=== PATIENT | female | born 1995 | race Hispanic/Latino ===

== ENCOUNTER 2023-07-02 16:19 | Emergency (ER) | payer OTHER, SELFPAY | END 2023-07-02 17:10 | disposition home or self-care (01) | PROVIDERS: Emergency Provider Registered Nurse | DX: N39.0 Urinary tract infection, site not specified (principal) | CPT/HCPCS: 81003; 81025; 87086; 99213; G0463 ==

== ENCOUNTER 2025-02-16 14:38 | Emergency (ER) | payer SELFPAY ==
--- OUTSIDE RECORDS SUMMARY | 2025-02-16 14:40 | XMS_ITS | Data Portability ---
Author Organization NYDIA REJIRogelio Fernandez Address [address] [facility] [place] [address] Care Team Providers Care Stave And Bolt Equalizer Name Role Phone MACIEALEX Primary Care Provider [phone] Assessment No assessment recorded. Plan of Treatment Reminders Order Date Submit Date Provider Last Modified By Organization Details Last Modified Time Details Appointments ANY 15 2024 07:45A CATRACHITO LAO Not available Not available Not available Lab amylase + lipase, serum 2022 023 BAYRON TOUSSAINT, [facility], [facility] [address], [place], [address], 07/25/2023 08:23:58 CMP, serum or plasma 2022 023 BAYRON TOUSSAINT, [facility], [facility] [address], [place], [address], 07/24/2023 20:09:55 TSH + free T4, serum 2021 022 [facility], [facility] [address], [place], [address], 07/15/2022 08:20:49 CMP, serum or plasma 2021 022 Alanis [facility], [address], [place], [address], 07/15/2022 08:20:50 CBC w/ auto diff 2021 022 BAYRON TOUSSAINT [address] [place], [place] [address]brissa Roahn, [address], [place], [address], 07/15/2022 08:20:49 HIV 1 + 2, meaningfu l use set 2021 022 [facility], [address] [facility], [address], [place], [address], 07/15/2022 08:20:50 Referral vascular surgeon referral 2023 024 Kevan Sam MD, [address] [facility] , [address], [address], 04/29/2024 08:06:01 Procedures None recorded. Surgeries None recorded. Imaging US, liver 2022 023 ATHENAFAX Not available 08/01/2023 12:01:13 Medication Orders sertralin e 50 mg tablet [address] [facility], [address] [place], [address], 03/14/2024 08:32:53 Patient TargetsNo targets recorded. Patient Instructions Encounter Date Encounter Id Patient Instructions Last Modified By Organization Details Last Modified Time 09/04/2015 [id number] Routine school physical with MCV4. ESL/ELL. No restrictions or limitations. [email or web address] Not available 09/04/2015 19:11:48 03/13/2024 [id number] A healthy lifestyle: care instructions Not available 03/14/2024 08:33:28 varicose veins: care instructions Not available 03/14/2024 08:31:29 Reason for Referral Vascular Surgeon Referral fo r Intermittent claudication Referring Physician: Alex Watson, Mattress Stripper, Encounter Date: 03/13/2024 Results Created Date Observation Date Name Description Value Unit Range Abnormal Flag Note LastModifiedBy Organization Detail LastModifiedTime 07/14/2007/15/2022 TSH+F REE T4 TSH 1.320 uIU/m L 0.450- 4.500 Not Available [facility] ([facility]) [address] [facility], [place], [address], 07/15/2022 08:20:49 07/14/2007/15/2022 TSH+F REE T4 T4,free(dire ct) 1.30 NG/dL 0.82-1 .77 Not Available [facility] ([facility]) [address] [facility], [place], [address], 07/15/2022 08:20:49 07/14/20 22 07/15/2022 CBC WITH DIFFE RENTI AL/PL ATELE T WBC 4.7 x10e3 /uL 3.4-10 .8 Not Available [facility] ([facility]) [address] [facility], [place], [address], 07/15/2022 08:20:49 07/14/20 22 07/15/2022 CBC WITH DIFFE RENTI AL/PL ATELE T RBC 4.68 x10e6 /uL 3.77-5 .28 Not Available [facility] ([facility]) [address] [place], [address], 07/15/2022 08:20:49 07/14/20 22 07/15/2022 CBC WITH DIFFE RENTI AL/PL ATELE T hemoglobin 14.3 g/dL 11.1-1 5.9 Not Available [facility] ([facility]) [address] [place], [address], 07/15/2022 08:20:49 07/14/20 22 07/15/2022 CBC WITH DIFFE RENTI AL/PL ATELE T hematocrit 43.5 % 34.0-4 6.6 Not Available [facility] ([facility]) [address] [place], [address], 07/15/2022 08:20:49 07/14/20 22 07/15/2022 CBC WITH DIFFE RENTI AL/PL ATELE T MCV 93 fL 79-97 Not Available [facility] ([facility]) [address] [facility], [place], [address], 07/15/2022 08:20:49 07/14/20 22 07/15/2022 CBC WITH DIFFE RENTI AL/PL ATELE T MCH 30.6 pg 26.6-3 3.0 Not Available [facility] ([facility]) [address] [facility], [place], [address], 07/15/2022 08:20:49 07/14/20 22 07/15/2022 CBC WITH DIFFE RENTI AL/PL ATELE T MCHC 32.9 g/dL 31.5-3 5.7 Not Available [facility] ([facility]) [address] [facility], [place], [address], 07/15/2022 08:20:49 07/14/20 22 07/15/2022 CBC WITH DIFFE RENTI AL/PL ATELE T RDW 11.8 % 11.7-1 5.4 Not Available [facility] ([facility]) [address] [place], [address], 07/15/2022 08:20:49 07/14/20 22 07/15/2022 CBC WITH DIFFE RENTI AL/PL ATELE T platelets 234 x10e3 /uL 150-45 0 Not Available [facility] ([facility]) [address] [facility], [place], [address], 07/15/2022 08:20:49 07/14/20 22 07/15/2022 CBC WITH DIFFE RENTI AL/PL ATELE T neutrophils 57 % not estab. Not Available [facility] ([facility]) [address] [place], [address], 07/15/2022 08:20:49 07/14/20 22 07/15/2022 CBC WITH DIFFE RENTI AL/PL ATELE T lymphs 36 % not estab. Not Available [facility] ([facility]) [address] [place], [address], 07/15/2022 08:20:49 07/14/20 22 07/15/2022 CBC WITH DIFFE RENTI AL/PL ATELE T monocytes 7 % not estab. Not Available [facility] ([facility]) [address] [place], [address], 07/15/2022 08:20:49 07/14/20 22 07/15/2022 CBC WITH DIFFE RENTI AL/PL ATELE T eos 0 % not estab. Not Available [facility] ([facility]) [address] [place], [address], 07/15/2022 08:20:49 07/14/20 22 07/15/2022 CBC WITH DIFFE RENTI AL/PL ATELE T basos 0 % not estab. Not Available [facility] ([facility]) [address] [place], [address], 07/15/2022 08:20:49 07/14/20 22 07/15/2022 CBC WITH DIFFE RENTI AL/PL ATELE T immature cells COMMUNICATION SPECIALIST Not Available [facility] ([facility]) [address] [place], [address], 07/15/2022 08:20:49 07/14/20 22 07/15/2022 CBC WITH DIFFE RENTI AL/PL ATELE T neutrophils (absolute) 2.7 x10e3 /uL 1.4-7. 0 Not Available [facility] ([facility]) [address] [place], [address], 07/15/2022 08:20:49 07/14/20 22 07/15/2022 CBC WITH DIFFE RENTI AL/PL ATELE T lymphs (absolute) 1.7 x10e3 /uL 0.7-3. 1 Not Available [facility] ([facility]) [address] [place], [address], 07/15/2022 08:20:49 07/14/20 22 07/15/2022 CBC WITH DIFFE RENTI AL/PL ATELE T monocytes(ab solute) 0.3 x10e3 /uL 0.1-0. 9 Not Available [facility] ([facility]) [address] [facility], [place], [address], 07/15/2022 08:20:49 07/14/20 22 07/15/2022 CBC WITH DIFFE RENTI AL/PL ATELE T eos (absolute) 0.0 x10e3 /uL 0.0-0. 4 Not Available [facility] ([facility]) [address] [facility], [place], [address], 07/15/2022 08:20:49 07/14/20 22 07/15/2022 CBC WITH DIFFE RENTI AL/PL ATELE T baso (absolute) 0.0 x10e3 /uL 0.0-0. 2 Not Available [facility] ([facility]) [address] [place], [address], 07/15/2022 08:20:49 07/14/20 22 07/15/2022 CBC WITH DIFFE RENTI AL/PL ATELE T immature granulocytes 0 % not estab. Not Available [facility] ([facility]) [address] [place], [address], 07/15/2022 08:20:49 07/14/20 22 07/15/2022 CBC WITH DIFFE RENTI AL/PL ATELE T immature grans (abs) 0.0 x10e3 /uL 0.0-0. 1 Not Available [facility] ([facility]) [address] [place], [address], 07/15/2022 08:20:49 07/14/20 22 07/15/2022 CBC WITH DIFFE RENTI AL/PL ATELE T NRBC COMMUNICATION SPECIALIST Not Available [facility] ([facility]) [address] [place], [address], 07/15/2022 08:20:49 07/14/20 22 07/15/2022 CBC WITH DIFFE AMY AL/ISAIAH Ash hematology comments: COMMUNICATION SPECIALIST Not Available [facility] ([facility]) [address] [facility], [place], [address], 07/15/2022 08:20:49 07/14/20 22 07/15/2022 COMP. METAB OLIC PANEL (14) glucose 83 mg/dL 65-99 Not Available [facility] ([facility]) [address] [facility], [place], [address], 07/15/2022 08:20:50 07/14/20 22 07/15/2022 COMP. METAB OLIC PANEL (14) BUN 9 mg/dL 6-20 Not Available [facility] ([facility]) [address] [facility], [place], [address], 07/15/2022 08:20:50 07/14/20 22 07/15/2022 COMP. METAB OLIC PANEL (14) creatinine 0.59 mg/dL 0.57-1 .00 Not Available [facility] ([facility]) [address] [facility], [place], [address], 07/15/2022 08:20:50 07/14/20 22 07/15/2022 COMP. METAB OLIC PANEL (14) eGFR 128 mL/mi n/1.7 3 >59 Not Available [facility] ([facility]) [address] [facility], [place], [address], 07/15/2022 08:20:50 07/14/20 22 07/15/2022 COMP. METAB OLIC PANEL (14) BUN/creatini ne ratio 15 9-23 Not Available [facility] ([facility]) [address] [facility], [place], [address], 07/15/2022 08:20:50 07/14/20 22 07/15/2022 COMP. METAB OLIC PANEL (14) sodium 140 mmol/ L 134-14 4 Not Available [facility] ([facility]) [address] [facility] [place], [address], 07/15/2022 08:20:50 07/14/20 22 07/15/2022 COMP. METAB OLIC PANEL (14) potassium 4.0 mmol/ L 3.5-5. 2 Not Available [facility] ([facility]) [address] [facility] [place], [address], 07/15/2022 08:20:50 07/14/20 22 07/15/2022 COMP. METAB OLIC PANEL (14) chloride 103 mmol/ L 96-106 Not Available [facility] ([facility]) [address] [facility] [place], [address], 07/15/2022 08:20:50 07/14/20 22 07/15/2022 COMP. METAB OLIC PANEL (14) carbon dioxide, total 22 mmol/ L 20-29 Not Available [facility] ([facility]) [address] [facility] [place], [address], 07/15/2022 08:20:50 07/14/20 22 07/15/2022 COMP. METAB OLIC PANEL (14) calcium 9.3 mg/dL 8.7-10 .2 Not Available [facility] ([facility]) [address] [facility] [place], [address], 07/15/2022 08:20:50 07/14/20 22 07/15/2022 COMP. METAB OLIC PANEL (14) protein, total 6.7 g/dL 6.0-8. 5 Not Available [facility] ([facility]) [address] [facility] [place], [address], 07/15/2022 08:20:50 07/14/20 22 07/15/2022 COMP. METAB OLIC PANEL (14) albumin 4.7 g/dL 3.9-5. 0 Not Available [facility] ([facility]) [address] [facility] [place], [address], 07/15/2022 08:20:50 07/14/20 22 07/15/2022 COMP. METAB OLIC PANEL (14) globulin, total 2.0 g/dL 1.5-4. 5 Not Available [facility] ([facility]) [address] [facility] [place], [address], 07/15/2022 08:20:50 07/14/20 22 07/15/2022 COMP. METAB OLIC PANEL (14) A/G ratio 2.4 1.2-2. 2 above high normal Not Available [facility] ([facility]) [address] [place], [address], 07/15/2022 08:20:50 07/14/20 22 07/15/2022 COMP. METAB OLIC PANEL (14) bilirubin, total 0.4 mg/dL 0.0-1. 2 Not Available [facility] ([facility]) [address] [place], [address], 07/15/2022 08:20:50 07/14/20 22 07/15/2022 COMP. METAB OLIC PANEL (14) alkaline phosphatase 77 IU/L 44-121 Not Available [facility] ([facility]) [address] [place], [address], 07/15/2022 08:20:50 07/14/20 22 07/15/2022 COMP. METAB OLIC PANEL (14) AST (SGOT) 16 IU/L 0-40 Not Available [facility] ([facility]) [address] [place], [address], 07/15/2022 08:20:50 07/14/20 22 07/15/2022 COMP. METAB OLIC PANEL (14) ALT (SGPT) 15 IU/L 0-32 Not Available [facility] ([facility]) [address] [place], [address], 07/15/2022 08:20:50 07/14/20 22 07/15/2022 HIV AB/P2 4 AG WITH REFLE X HIV Ab/P24 Ag screen Non Reacti ve non reacti ve HIV Negat chris HIV-1 /HIV- 2 antib odies and HIV-1 p24 antig en were NOT detec emily. There is no labor atory evide nce of HIV infec tion. Not Available [facility] ([facility]) [address] [facility], [place], [address], 07/15/2022 08:20:50 07/24/20 23 07/24/2023 COMP. METAB OLIC PANEL (14) glucose 77 mg/dL 70-99 Not Available [facility] [address] [place] [address], [address], 07/24/2023 20:09:55 07/24/20 23 07/24/2023 COMP. METAB OLIC PANEL (14) BUN 12 mg/dL 6-20 Not Available [facility] [address] [place] [address], [address], 07/24/2023 20:09:55 07/24/20 23 07/24/2023 COMP. METAB OLIC PANEL (14) creatinine 0.61 mg/dL 0.76-1 .27 below low normal Not Available [facility] [address] [place], [address], 07/24/2023 20:09:55 07/24/20 23 07/24/2023 COMP. METAB OLIC PANEL (14) eGFR 126 >=60 Units for eGFR value s are mL/mi n/1.7 3 The eGFR Calcu latio n has not been valid ated for patie nts under the age of 18. If test resul ts are displ ayed for a patie nt under the age of 18, disre maxime that value . Not Available [facility] [address] [place] [address], [address], 07/24/2023 20:09:55 07/24/20 23 07/24/2023 COMP. METAB OLIC PANEL (14) BUN/creatini ne ratio 20 9-[address] [facility] [address] [place] [address], [address], 07/24/2023 20:09:55 07/24/20 23 07/24/2023 COMP. METAB OLIC PANEL (14) sodium 140 mmol/ L 134-14 4 Not Available [facility] [address] [place] [address], [address], 07/24/2023 20:09:55 07/24/20 23 07/24/2023 COMP. METAB OLIC PANEL (14) potassium 4.2 mmol/ L 3.5-5. 2 Not Available [facility] [address] [place] [address], [address], 07/24/2023 20:09:55 07/24/20 23 07/24/2023 COMP. METAB OLIC PANEL (14) chloride 104 mmol/ L 96-106 Not Available [facility] [address] [place] [address], [address], 07/24/2023 20:09:55 07/24/20 23 07/24/2023 COMP. METAB OLIC PANEL (14) carbon dioxide, total 25 mmol/ L 20-29 Not Available [facility] [address] [place] [address], [address], 07/24/2023 20:09:55 07/24/20 23 07/24/2023 COMP. METAB OLIC PANEL (14) calcium 9.8 mg/dL 8.7-10 .2 Not Available [facility] [address] [place] [address], [address], 07/24/2023 20:09:55 07/24/20 23 07/24/2023 COMP. METAB OLIC PANEL (14) protein, total 7.4 g/dL 6.0-8. 5 Not Available [facility] [address] [place], [address], 07/24/2023 20:09:55 07/24/20 23 07/24/2023 COMP. METAB OLIC PANEL (14) albumin 5.1 g/dL 4.0-5. 0 above high normal Not Available [facility] [address] [place], [address], 07/24/2023 20:09:55 07/24/20 23 07/24/2023 COMP. METAB OLIC PANEL (14) globulin, total 2.3 g/dL 1.5-4. 5 Not Available [facility] [address] [place], [address], 07/24/2023 20:09:55 07/24/20 23 07/24/2023 COMP. METAB OLIC PANEL (14) A/G ratio 2.0 1.2-2. 2 Not Available [facility] [address] [place], [address], 07/24/2023 20:09:55 07/24/20 23 07/24/2023 COMP. METAB OLIC PANEL (14) bilirubin, total 0.6 mg/dL 0.0-1. 2 Not Available [facility] [address] [place], [address], 07/24/2023 20:09:55 07/24/20 23 07/24/2023 COMP. METAB OLIC PANEL (14) alkaline phosphatase 69 IU/L 44-121 Not Available [facility] [address] [place], [address], 07/24/2023 20:09:55 07/24/20 23 07/24/2023 COMP. METAB OLIC PANEL (14) AST (SGOT) 17 IU/L 0-40 Not Available [facility] [address] [place], [address], 07/24/2023 20:09:55 07/24/20 23 07/24/2023 COMP. METAB OLIC PANEL (14) ALT (SGPT) 10 IU/L 0-32 Not Available [facility] [address] [place], [address], 07/24/2023 20:09:55 07/24/20 23 07/25/2023 MIR+L IPASE amylase 79 U/L 31-110 Not Available [facility] ([facility]) [address] [place], [address], 07/25/2023 08:23:58 07/24/20 23 07/25/2023 MIR+L IPASE lipase 33 U/L 14-72 Not Available [facility] ([facility]) [address] [place], [address], 07/25/2023 08:23:58 03/13/20 24 03/13/2024 Chori ogona dotro pin.b eta subun it [Unit s/vol ume] in Serum or Plasm a B-HCG <0.2 B-HCG Not Available Not Availa ble 02/11/2025 16:21:42 02/13/20 25 02/12/2025 pregn chelita test, urine HCG negati ve Not Available In-Office Order Internal Use Only DO Not Attach Compendium DO Not Attach Compendium, Do Not Delete/merge, [id number] 02/11/2025 16:40:29 Result Notes None recorded. Problems Name Problem SNOMED Code Status Onset Date Resolution Date Notes Provider Name and Address Organization Details Recorded Time Right upper quadrant pain 542434011 Active 2022 CATRACHITO WILKINSON Attn: Rosalie g,[address] [facility], [place], [address], [facility] 3 10:34:38 Intermittent claudication 85425148 Active 2023 CATRACHITO WILKINSON Attn: Rosalie g,[address] [facility], [place], [address], [place] - [facility] 4 17:07:44 Problem Notes None recorded. Medical Equipment None Reported. Allergies No known drug allergies Medications Name Sig Start Date Stop Date Status Note LastModified by Organization Details LastModified Time cyclobenzap rine 10 mg tablet TAKE 1 TABLET BY MOUTH THREE TIMES DAILY NEEDED FOR MUSCLE SPASM 03/13 completed Not Available Not Available Not Available buspirone 5 mg tablet TAKE 1 TABLET BY MOUTH TWICE DAILY NEEDED FOR ANXIETY active Not Available Not Available No t Available trazodone 50 mg tablet TAKE 1 TABLET BY MOUTH EVERY DAY AT BEDTIME active Not Available Not Available No t Available omeprazole 20 mg capsule,del ayed release Take 1 capsule every day by oral route for 90 days. 2024 active Not Available Not Available Not Avai lable sertraline 50 mg tablet Take 1 tablet every day by oral route. 03/14 completed Not Available Not Available Not Available naproxen 500 mg tablet TAKE 1 TABLET BY MOUTH TWICE DAILY NEEDED FOR PAIN 03/13 completed Not Available Not Available Not Available medroxyprog esterone 150 mg/mL intramuscul ar syringe INEJCT 1 ML INTRAMUSC ULARLY EVERY 3 MONTHS active Not Available Not Available No t Available nitrofurant oin monohydrate /macrocryst als 100 mg capsule TAKE 1 CAPSULE BY MOUTH TWICE DAILY FOR 7 DAYS 03/13 completed Not Available Not Available Not Available Vitals Date Recorded Body weight Oxygen saturation Oxygen saturation in Arterial blood by Pulse oximetry Body height Body temperature Heart rate Body mass index (BMI) Systolic blood pressure Diastolic blood pressure Provider Name and Address Organization Details Last Updated DateTime 5 58582.6 7677 g 99 % 99 % 162.56 cm 98.3 [degF] 68 /min 20.8 kg/m2 96 mm[Hg] 64 mm[Hg] [place] Peguero [place] - [facility] 5 18:59:34 Date Recorded Body height Body mass index (BMI) Body weight Heart rate Oxygen saturation Oxygen saturation in Arterial blood by Pulse oximetry Systolic blood pressure Diastolic blood pressure Provider Name and Address Organization Details Last Updated DateTime 2 165.74 cm 18.5 kg/m2 45171.0 5 g 66 /min 100 % 100 % 98 mm[Hg] 62 mm[Hg] Rocio Ag [place] [facility] 2 10:31:24 Date Recorded Body weight Body mass index (BMI) Body height Heart rate Oxygen saturation Oxygen saturation in Arterial blood by Pulse oximetry Systolic blood pressure Diastolic blood pressure Provider Name and Address Organization Details Last Updated DateTime 3 45827.7 5 g 19.7 kg/m2 160.02 cm 62 /min 100 % 100 % 100 mm[Hg] 82 mm[Hg] Rocio Ag MA [facility] 3 10:04:41 Date Recorded Body height Body mass index (BMI) Body weight Heart rate Oxygen saturation Oxygen saturation in Arterial blood by Pulse oximetry Systolic blood pressure Diastolic blood pressure Provider Name and Address Organization Details Last Updated DateTime 4 160.02 cm 22 kg/m2 90126.8 5 g 81 /min 99 % 99 % 105 mm[Hg] 66 mm[Hg] Rocio Ag MA [facility] 4 16:49:05 Date Recorded Body height Body mass index (BMI) Body weight Heart rate Oxygen saturation Oxygen saturation in Arterial blood by Pulse oximetry Systolic blood pressure Diastolic blood pressure Provider Name and Address Organization Details Last Updated DateTime 5 160.02 cm 21.6 kg/m2 76559.2 7 g 83 /min 97 % 97 % 102 mm[Hg] 69 mm[Hg] Rocio Ag [place] [facility] 5 16:27:30 Social History Question Answer Notes LastModified by Organizat ion Details LastModified Time Tobacco Smoking Status Never Smoker Isis lee [facility] 09/04/2015 18:59:34 What Is Your Level Of Alcohol Consumption? Occasional Information not available 07/14/2022 In The 14 Days Before Symptom Onset, Have You Had Close Contact With A Laboratory-confirm ed COVID-19 While That Case Was Ill? No Information n ot available 07/14/2022 In The 14 Days Before Symptom Onset, Have You Had Close Contact With A Person Who Is Under Investigation For COVID-19 While That Person Was Ill? No Information not available 07/14/2022 Have You Been To An Area Known To Be High Risk For COVID-19? No Information not available 07/14/2022 What Was The Date Of Your Most Recent Tobacco Screening? 02/11/2025 Information not available 02/11/2025 Do You Have Smoke And Carbon Monoxide Detectors In Your Home? Yes Information not available 07/14/2022 Are You Passively Exposed To Smoke? No Information no t available 07/14/2022 Do You Use Any Illicit Or Recreational Drugs? No Information not available 07/14/2022 Has Tobacco Cessation Counseling Been Provided? Yes Information not available 07/14/2022 On What Date Was Tobacco Cessation Counseling Provided? 02/11/2025 Information not available 02/11/2025 Do You Or Have You Ever Used Any Other Forms Of Tobacco Or Nicotine? No Information not available 07/14/2022 Sex: Female Functional Status None recorded. Mental Status None recorded. Family History Relationship Description Onset Age of this Age Resolved Age Notes LastModified by Organization Details LastModified Time Father No current problems or disability Not available 07/14 10:29:06 Mother No current problems or disability Not available 07/14 10:29:07 Medical History Condition Response Coronary Artery Disease N Other N High Blood Pressure N Atrial Fibrillation N Kidney or Bladder Problems N Thyroid Problems N GI Problems N Depression N COPD N Blood Clots N Skin Problems N Anemia N Heart Attack ([place]) N Anxiety Disorder N Diabetes N Muscle, Joint, or Bone Problems N Seizures/Epilepsy N Acid Reflux (GERD) N Cancer N Stroke N Asthma N Allergies N High Cholesterol N Hepatitis N Liver Disease N Headaches N Osteoporosis N Heart Failure N Gynecological History Statement/Question Response Flow Light Date of LMP 06/25/2022 Frequency of Cycle (Q days) 28 Menses Monthly Y Date of Last Pap Smear Duration of Flow (days) 7 Age at Menarche 15 Age at First Child LMP Approximate Obstetrics History GPAL:G 0 P 0 0 0 0 Type Value Living 0 Total 0 Immunizations Vaccine Type Date Status Note Provider Jonathan reyes and Address Organization Details Recorded Time Hep A, adult 7 completed Rocio Ag [place], [place] [facility] 07/14/2022 10:21:50 COVID-19, mRNA, LNP-S, PF, 30 mcg/0.3 mL dose 04/30/202 1 completed Rocio Ag [place] [facility] 07/14/2022 10:22:54 COVID-19, mRNA, LNP-S, PF, 30 mcg/0.3 mL dose 1 completed Rocio Ag [place] [facility] 07/14/2022 10:22:48 COVID-19, mRNA, LNP-S, PF, 30 mcg/0.3 mL dose 2 completed Rocio Ag [place], [place] [facility] 07/14/2022 10:22:44 meningococcal MCV4P 5 completed Not Available [facility] 02:29:55 Past Encounters Encounter ID Performer Location Encounter Start Date Encounter Closed Date Diagnosis/Indication Diagnosis SNOMED-CT Code Diagnosis ICD10 Code Diagnosis Note [id number] Isis Peguero [facility] [address] [place] [address] 09/04/2015 18:47:00 09/04/2015 19:12:09 History and physical examination, [place] [facility] [id number] Z02.0 [id number] CATRACHITO WILKINSON [facility] [address] [place] [address] 07/14/2022 10:14:56 07/19/2022 09:22:27 Moderate major depression, single episode [id number] F32.1 decreased appetite with weight loss, sadness, loss of energy, isolation, co-workers notice change. denies si.hi. - advised counseling -Patient was educated on his prescribed medication s, rationale for medication s, dosing indication s, adverse reactions, black box warning, dosing indication s, SE (e.g., decreased libido, weight gain, gynecomast ia, and galactorrh ea) and the risks and benefits. -Call center with questions/ concerns. Go to ER or call 911 for crisis (e.g., suicidal behaviors, suicidal ideations, intent or plan emerge). Additional ly, patient has suicide hotline #. - f/u one month - call with questions Weight loss [id number] R63 .4 liely from less caloric intake. will obtain labs and r/o thyroid, other HIV screening [id number] Z11.4 [id number] CATRACHITO WILKINSON [facility] [address] [place] [address] 07/24/2023 09:45:46 07/25/2023 15:57:35 Right upper quadrant pain [id number] R10.11 9/10 RUQ pain with radiation R flank. pain lasts 3 hours + lasting hours after greasy meals. denies fever, chills, vomiting, yellowing skin. If above develop or if pain does not improve advised going to ER- labs- US. [id number] CATRACHITO WILKINSON [facility] [address] [place] [address] 03/13/2024 16:27:02 03/18/2024 20:38:39 Intermittent claudication [id number] I73.9 pain around varicose veins posterior R leg near popliteal space x 1 months. pain worse at night but also day. has not tried compressio n socks. no recent injury or long periods of sitting. on depo.warm creams on her legs helps. patient insists on seeing vascular. Wear compressio n stockings during the day to help relieve symptoms. They improve blood flow and are the main treatment for varicose veins. Talk to your doctor about which ones to get and where to get them.Prop up your legs at or above the level of your heart when possible. This helps keep the blood from pooling in your lower legs and improves blood flow to the rest of your body.Avoid sitting and standing for long periods. This puts added stress on your veins.Get regular exercise, and control your weight. Walk, bicycle, or swim to improve blood flow in your legs. Normal weight [id number] Z 68.22 Health Concerns Section Related Observation LastModified by Organization Detai ls LastModified Time None Recorded Concern Status LastModified by Organization Details LastModified Time None Recorded Advance Directives Directive None Recorded Payers Encounter Date Sequence Insurance Name Policy Number Policy Espinosa Covered Member ID Espinosa Member ID Guarantor Name 07/14/2022 1 [facility] - DOS ON OR AFTER 21 (MEDICAID REPLACEMENT - HMO) Alex Huynh [id number] Alex Huynh 07/24/2023 1 [facility] ON OR AFTER 05/27/21 (MEDICAID REPLACEMENT - HMO) Alex Huynh [id number] Alex Huynh 03/13/2024 1 [facility] ON OR AFTER 05/27/21 (MEDICAID REPLACEMENT - HMO) Alex Huynh [id number] Alex Huynh Notes Date Note Type Note Provider Name and Address Organization Details Recorded Time 09/04/2015 text/html School physical. [place] [employer] [facility], [facility] 09/04/2015 20:00:47 07/14/2022 text/html Alex is a 26 YO F presenting to [facility] people ntoiced shes not the same. 10 lb weight loss. decreased appetite, has eaten less. was eating ensure at one point. always had decreased appetite. avoids dairy.feels without energy, more tired, sleeps at 2 am and wakes up at 7-8 am. gets in bed at 10.breakfast: nonelunch 12: tacos 3 small tortillas with meat, or ricedinner: meat, with carb,no veggiesdrinks: was drinking pepsibm: 3x per day, formed periods: normalpap: none CATRACHITO WILKINSON Attn: Accounting,[address] [facility], [place], [address], [facility] 07/18/2022 13:56:30 07/24/2023 text/html Alex is a 26 YO F presenting to [facility] 2 weeks ago went to [facility] for abdominal pain and gave her abx for uti. no images or labs taken. their system was down so they just gave me abx. ruq pain is multiple days per week and rated 8-9/10 lancing/sharp pain with radiation to right flank. pain worse after greasy foods. worse after tacos. denies fever, chills. yellowing of skin, vomiting nausea, dysuria. CATRACHITO WILKINSON Attn: Accounting,[address] [facility], [place], [address], [facility] 07/24/2023 10:35:50 03/13/2024 text/html Alex presents for leg pain She has had right leg aching around some varicose veins in the back of her knee. she notices that are swells towards the end of the day. denies redness to area. has not tried compression socks. She does take depo. no recent flights and no injury to this leg. pain is worse at night but does occur in the day time. She applies a Mauritanian cream (mamisan) to area and it helps. she does not know what is in the cream. heat also helps CATRACHITO WILKINSON Attn: Accounting,[address] [place], [address], [facility] 03/14/2024 08:33:35 OBGyn Episode No OBEpisode recorded.
--- OUTSIDE RECORDS SUMMARY | 2025-02-16 14:41 | XMS_ITS | Data Portability ---
Author Organization [facility] [place] Address [address] [place] [address] Care Team Providers Care Urgent Care Physician Name Role Phone MACIEALEX Primary Care Provider Assessment No assessment recorded. Plan of Treatment Reminders Order Date Submit Date Provider Last Modified By Organization Details Last Modified Time Details Appointments None recorded. Lab None recorded. Referral None recorded. Procedures None recorded. Surgeries None recorded. Imaging None recorded. Medication Orders Depo-Budget Examiner a 150 mg/mL intramuscul ar syringe 2023 024 [email or web address] Not available 4 16:56:36 Depo-Budget Examiner a 150 mg/mL intramuscul ar syringe 2023 024 [email or web address] Not available 4 10:23:25 Depo-Budget Examiner a 150 mg/mL intramuscul ar syringe 2023 024 [email or web address] Not available 4 10:20:53 Patient TargetsNo targets recorded. Patient InstructionsNo instructions recorded. Reason for Referral None Reported. Results Created Date Observation Date Name Description Value Unit Range Abnormal Flag Note LastModifiedBy Organization Detail LastModifiedTime 03/13/20 24 03/13/2024 BHCG, QUANT ITATI VE B-HCG <0.2 mIU/m L This assay was perfo rmed using [employer] ratio n reage nts and test kits. Value s obtai patrick with other assay metho ds or kits canno t be used inter medina eably . Refer ence Range s: Non-p regna nt, preme nopau az women : 0.0-5 .3 mIU/m L Postm enopa usal women : 0.0-7 .0 mIU/m L Staci l Pregn chelita: Gesta reena l Age bHCG Conc. - mIU/m L 3 Weeks 5.8 - 71.7 4 Weeks 9.5 - 750 5 Weeks 217-7 138 6 Weeks 158 - 31,79 5 7 Weeks 3,697 - 162,5 63 8 Weeks 32,06 5 - 149,5 71 9 Weeks 63,80 3 - 151,4 10 10 Weeks 46,50 9 - 186,9 77 12 Weeks 27,83 2 - 210,6 12 14 Weeks 13,95 0 - 62,53 0 15 Weeks 12,03 9 - 70,97 1 16 Weeks 9,040 - 56,45 1 17 Weeks 8,175 - 55,86 8 18 Weeks 8,099 - 58,17 6 1 GOLD Not Available [facility] (Lab) [address], [place], [address], 03/14/2024 03:51:11 Result Notes None recorded. Medical Equipment None Reported. Allergies No known drug allergies Medications Name Sig Start Date Stop Date Status Note LastModified by Organization Details LastModified Time cyclobenzapr ine 10 mg tablet TAKE 1 TABLET BY MOUTH THREE TIMES DAILY NEEDED FOR MUSCLE SPASM active Not Available Not Available No t Available Depo-Provera 150 mg/mL intramuscula r suspension Inject 1 mL every 3 months by intramuscul ar route. 2022 active Not Available Not Available Not Avai lable naproxen 500 mg tablet TAKE 1 TABLET BY MOUTH TWICE DAILY NEEDED FOR PAIN active Not Available Not Available No t Available Depo-Provera 150 mg/mL intramuscula r syringe Inject 1 mL every 3 months by intramuscul ar route. 2023 active Not Available Not Available Not Avai lable nitrofuranto in monohydrate/ macrocrystal s 100 mg capsule TAKE 1 CAPSULE BY MOUTH TWICE DAILY FOR 7 DAYS active Not Available Not Available No t Available Vitals Date Recorded Body height Provider Name an d Address Organization Details Last Updated DateTime 10/10/2023 162.56 cm Rae Ortiz [place] [facility] 10/10/2023 11:24:55 Date Recorded Body height Provider Name an d Address Organization Details Last Updated DateTime 03/15/2024 162.56 cm Isis Wong [facility] 03/15/2024 10:15:44 Social History Question Answer Notes LastModified by Organizat [employer] Details LastModified Time Tobacco Smoking Status Never Smoker Darshana Cisneros null, [facility] 12/29/2022 17:09:39 What Is Your Level Of Alcohol Consumption? None Information not available 12/29/2022 Are You Blind Or Do You Have Difficulty Seeing? No Information not available 12/29/2022 Are You Deaf Or Do You Have Serious Difficulty Hearing? No Information not available 12/29/2022 Sex: Unknown Functional Status Question Answer Note LastModified by Organizat ion Details LastModified Time Do you have difficulty walking or climbing stairs? No Information not available 12/29/2022 Are you able to walk? YESWOREST Information not available 12/29/2022 Are you able to care for yourself? Yes Information not available 12/29/2022 Do you have difficulty dressing or bathing? No Information not available 12/29/2022 Mental Status None recorded. Family History Relationship Description Onset Age of this Age Resolved Age Notes LastModified by Organization Details LastModified Time Father No current problems or disability [email or web address] Not available 12/2022 17:09:21 Mother No current problems or disability [email or web address] Not available 12/2022 17:09:21 Medical History Condition Response Other N Blood Transfusion N Dermatologic Disorders N Gestational Diabetes N Anxiety Disorder N Autoimmune disease N Arthritis N Polyps N Infertility N Acid Reflux (GERD) N Cancer N Varicosities N Stroke N Neurologic/Epilepsy N Fibromyalgia N Headaches N Kidney Disease N Heart Problems N Kidney or Bladder Problems N Eating Disorder N Art (IVF or FET) N Hepatitis/Liver Disease N No Past Medical History N Urinary Tract Infection N Asthma N Trauma/Violence N Thrombophilias N Allergies (Food, seasonal, environmental ) N Breast Cancer N Drug/Latex Allergies/Reactions N Lung Disease N Defects or Inherited Disease N Breast Problem N Hematologic disorders N Anesthesia Complications N History of STI N Deep Vein Thrombosis N Polycystic ovary syndrome N History of abnormal pap N Endometriosis N High Cholesterol N Thyroid Problems N GI Problems N Anemia N Psychiatric Illness N Ovarian Cancer N Diabetes N Pulmonary (TB, Asthma) N Eczema N Abuse/Domestic Violence N Depression/ depression N Heart Disease N Pre-Eclampsia N Hypertension N Osteoporosis N Gynecological History Statement/Question Response Flow Light Date of LMP 12/23/2022 Was last menstrual period normal Y STIs/STDs N HPV Vaccine N Duration of Flow (days) 6 Current Control Method Depo-Budget Examiner a Are cycles usually normal Y Sexually Active? Y Menses Monthly Y Age of first menstrual cycle 16 Date of Last Pap Smear Sexual Problems? N LMP Approximate Obstetrics History GPAL:G 0 P 0 0 0 0 Past Encounters Encounter ID Performer Location Encounter Start Date Encounter Closed Date Diagnosis/Indication Diagnosis SNOMED-CT Code Diagnosis ICD10 Code Diagnosis Note [id number] HOLA Mitchell [place] [address] [address] 12/29/2022 16:28:46 12/29/2022 17:47:39 Gynecologic examination [id number] Z01.419 Take Calcium with Vitamin D 1200mg daily if not receiving in daily diet. It is strongly advised to have an annual flu shot and up can obtain at most pharmacies . If you have not had a TDap shot in the last 10 years you should obtain one as well. Discussed with patient & provided with informatio n regarding Gardisil vaccine to prevent the 4 strains for HPV that cause cervical cancer if under age 26. Encourage safe sexual practices, to use condoms and limit partners if not already in a monogamous relationsh ip. Do monthly self breast exams. Have mammogram yearly or every other year depending on family history. BRCA testing is now available for patients with strong genetic history of female cancer. If interested contact the office. Engage in daily exercise of low impact aerobic exercise 45-60 minutes 4-5 times weekly. Avoid tobacco and illicit drugs as well as using moderation with alcohol intake less than 1-2 8 oz beverages daily. This lifestyle behavior pattern will lead to less health conditions and longer life span. If BMI greater than 25 weight watchers or dietary consult advised. Patient received above instructio ns, and questions have been answered. If you have any questions please call or respond to this email. Patient was made aware of the patient portal and may obtain a paper copy of today's plan if desired. WWJUAN ALBERTOC - has been receiving cyclofemin a injection in [place]. She is unsure how often she has this done. Her lives in [place] and she is often in [place] visiting. Upon research, cyclofemin a appears to be a once monthly contracept chris injection offered in [place].We discussed all BC methodsShe would like to continue with an injection, desires depo Depo-Prove ra is a female hormonal method of control. It s very effective in preventing . Depo-Prove ra contains a synthetic (man-made) form of the hormone progestero ne, called depo medroxypro gesterone acetate (DMPA). The Depo-Prove ra injection gives 3 months protectio n against . You should get one injection every 3 months (13 weeks) to get the best protection against . It s safe to get your injection up to 3 weeks earlier if you can t get your next injection in exactly 13 weeks. This will need to be given between 1-7 of next menstrual cycle. Condoms or other secondary BC method is advised for at least the first 4wks. Possible SE's include: Mood changes, AUB, Dizziness, H/A's, bloating, loss of menstrual cycle, weight gain approx 5#'s every year for the first 3yrs. Does not prevent against STD's. Typical use only 6 out of every 100 women will become . Perfect use only 1 out of every 100 women will become . It is recommende d for Depo to be initiated at least 2yrs after you have started your menstrual cycle to protect bone health as there is a risk of bone density loss. This is usually reversible once this medication is stopped. While on this medication recommend increasing calcium in diet & taking calcium 1300mg-180 0mg daily along with benjamin D daily to prevent bone loss along with regular exercise. There is less of a risk of bone loss after age 18yo. After 3-5yrs use it may be recommende d to complete a dexa scan. This can be discussed with your healthcare provider. Depo sent to [facility] cyclofemin a injection 11/09/22Sh e is currently on her period, she will return for injection tomorrow. Will need (-) UPT prior to injection. Primary pap doneSTI testing added to papBlood STI testing declinedUT D with [facility]PRTC for depo injection Contracept ion care management [id number] Z30.9 [id number] Ora Chin ROBI [place] [address] [address] 12/30/2022 10:37:45 12/30/2022 11:28:00 Contraception care [id number] Z30.40 [id number] Ora Chin [facility] [address] [address] 03/17/2023 09:58:47 03/17/2023 10:19:38 Contraception care management [id number] Z30.9 [id number] Ora Chin ROBI [place] [address] [address] 07/10/2023 16:37:11 07/10/2023 17:18:36 Contraception care management [id number] Z30.9 All BC options discussedd esires to continue with depoR/B/A discussed with patient. She is aware of potential weight gain, bone loss with longer term use, and/or irregular periods.[facility] ordered, have done today - return to clinic tomorrow for injectiond iscussed importance of sticking to depo schedule and not missing injections STI testing declined Time spent in visit is a total of 25 mins with at least 50% of visit consisting of counseling and review of plan of care. [id number] Ora Chin RO[facility] [place] [address] [address] 07/11/2023 10:27:23 07/11/2023 15:14:26 Contraception care management [id number] Z30.9 [id number] [facility] [address] [address] 03/15/2024 09:40:28 03/15/2024 10:23:07 Contraception care management [id number] Z30.9 [id number] [facility] [address] [address] 06/14/2024 09:28:28 06/14/2024 10:33:27 Contraception care management [id number] Z30.9 [id number] Wilman Brandon MD [place] [address] [address] 09/13/2024 09:37:15 09/16/2024 03:43:56 Contraception care management [id number] Z30.9 Health Concerns Section Related Observation LastModified by Organization Detai ls LastModified Time None Recorded Concern Status LastModified by Organization Details LastModified Time None Recorded Advance Directives Directive None Recorded Payers Encounter Date Sequence Insurance Name Policy Number Policy Espinosa Covered Member ID Espinosa Member ID Guarantor Name 03/15/2024 1 [facility] ON OR AFTER 05/27/21 (MEDICAID REPLACEMENT - HMO) Alex Huynh [id number] Alex Huynh 06/14/2024 1 [facility] ON OR AFTER 05/27/21 (MEDICAID REPLACEMENT - HMO) Alex Huynh [id number] Alex Huynh 09/13/2024 1 *SELF PAY* Irvin Huynh OBGyn Episode No OBEpisode recorded.
[2025-02-16 14:48] VITALS: BP 114/64; PULSE 74; RESP 16; TEMP 36.5; O2SAT 100
[2025-02-16 15:01] LABS: BEDSIDEPREGUCG Negative (Negative)
[2025-02-16 15:07] LABS: Add Urine Microscopic? YES; Appearance Urine Cloudy (Clear); Bacteria Urine 3+ /hpf; Bilirubin Urine Negative (Negative); Blood Urine Negative (Negative); Color Urine Yellow (Yellow); Glucose Urine UA Negative (Negative); Ketones Urine Negative (Negative); Leukocyte Esterase Ur 2+ LEU/UL (Negative); Nitrate Urine Negative (Negative); Non Pathogenic Casts 0-2; Protein Urine Negative (Negative); Specific Grav Ur 1.023 (1.001-1.035); Squamous Epithelial Cell Urine Moderate /hpf (Few)
--- NOTE | 2025-02-16 16:11 | PC.NURSE ---
while checking in a patient this RN noted that pt walked out of ED at 1552 with family and without telling staff. pt ambulates out of ED with steady gait and does not appear in any resp. distress.
== END 2025-02-16 16:40 | disposition left against medical advice (07) ==
PROVIDERS: Emergency Provider Emergency Medicine
DX: R10.31 Right lower quadrant pain (principal)
CPT/HCPCS: 81001; 81025; 99199